=== PATIENT | female | born 1985 | race Caucasian/White ===

== ENCOUNTER 2019-10-26 18:21 | Emergency (ER) | payer MEDICAID ==
[~2019-10-26] VITALS: Ht 157.5 cm; Wt 68.9 kg
[2019-10-26 18:35] VITALS: BP_SYST 139
[2019-10-26] MEDS ORDERED: IBUPROFEN 600 MG TABLET PO ONE (18:45)
== END 2019-10-26 19:10 | disposition home or self-care (01) ==
LOC: SED 18:21
DX: S60.221A Contusion of right hand, initial encounter (principal); Z88.8 Allergy status to other drugs, medicaments and biological substances; W20.8XXA Other cause of strike by thrown, projected or falling object, initial encounter; Y93.89 Activity, other specified; Y92.89 Other specified places as the place of occurrence of the external cause; Y99.8 Other external cause status
CPT/HCPCS: 81025; 99283